=== PATIENT | female | born 1940 | race Caucasian/White ===

== ENCOUNTER 2021-12-20 10:37 | Day surgery (SDC) | payer MEDICARE, BC ==
[2021-12-20] VITALS (10 sets, daily range): BP systolic 151–175; BP diastolic 82–93
[~2021-12-20] VITALS: Ht 170.2 cm; Wt 63.1 kg
[~2021-12-20 10:37] MED LIST: ASPI81TA52 PO; ATOR20TA66 PO; ESCI20TA39 PO; METF-436 PO; MIRT45TA83 PO; PRAZ2CAP2 PO; ceFAZolin inj. 2,000 MG in dextrose 5%-water 100 ML IV ONE; famotidine 20mg tablet PO ONE; ringers solution, lacted 1,000 ML IV SCH
[2021-12-20] MEDS ORDERED: bacitracin 15gm ointment TP ONE ×2 (13:04→15:19)
[2021-12-20] MEDS ORDERED: BUPIVAcaine/PF 2.5 mg/ml (0.25%) 30ml vial ONE (13:04)
[2021-12-20] MEDS ORDERED: sevoflurane 250ml liquid IH ONE (13:35)
[2021-12-20] MEDS ORDERED: propofol 10mg/ml 20ml vial IV ONE (13:35)
[2021-12-20] MEDS ORDERED: ondansetron/PF 4mg/2ml inj ONE (13:35)
[2021-12-20] MEDS ORDERED: LIDOcaine 1% (10mg/ml)w/preservative inj. 20ml MDV ONE (13:35)
[2021-12-20] MEDS ORDERED: dexamethasone sod phosphate 10mg/ml inj ONE (13:35)
[2021-12-20] MEDS ORDERED: fentaNYL/PF 50MCG/1 ML 2ML syringe ONE (13:40)
[2021-12-20] MEDS ORDERED: midazolam 1 mg/ML 2ml injection ONE (13:44)
[2021-12-20] MEDS ORDERED: ringers solution, lacted 1,000 ML IV SCH (14:00)
[2021-12-20] MEDS ORDERED: HYDROmorphone/PF 0.2 MG/ML SYRINGE IV PRN ×2 (14:00)
[2021-12-20] MEDS ORDERED: ondansetron/PF 4mg/2ml inj IV PRN (14:00)
[2021-12-20] MEDS ORDERED: morphine 2 MG/ML inj. syringe IV PRN (14:00)
[2021-12-20] MEDS ORDERED: BUPIVAcaine/PF 2.5 mg/ml (0.25%) 30ml vial IJ ONE (14:22)
--- NOTE | 2021-12-20 16:02 | NUR ---
Received from OR via [facility] , accompanied by Anesthesiologist DR SYED and report given by Anesthesiolgist. PT PRESNTS WITH PIV 20G LEFT WRIST, RIGHT LFOOT DRESSING CLEAN DRY AND INTACT WITH BOOT. VSS. Addendum: 12/20/21 at 1636 by Chasidy Lake RN, RN Amended: Links added.
[2021-12-20] MEDS ORDERED: labetalol 20mg/4ml (5mg/ml) syringe IV PRN (16:40)
[2021-12-20] MEDS ORDERED: labetalol 20mg/4ml (5mg/ml) syringe IV ONE (16:45)
--- NOTE | 2021-12-20 17:12 | NUR ---
PT HAS MET ALL DC CRITERIA. IV DC'D WIT ALEKSEY INTACT. DC INSTRUCTIONS REVIEWED WITH PT, PT VERBALIZED UNDERSTANDING WITH NO FURTHER QUESTIONS AT THIS TIME. PT PROVIDED WITH BLUE FOAM LEG ELEVATOR. PT TAKEN OUT TO PRIVATE VEHICLE IN WHEELCHAIR WHERE FAMILY MEMBER TOOK PT HOME. Addendum: 12/20/21 at 1730 by Chasidy Lake RN, RN Amended: Links added.
== END 2021-12-20 17:12 | disposition home or self-care (01) ==
LOC: PAS 10:37
PROVIDERS: ATTEND Podiatrist Foot & Ankle Surgery
DX: M20.11 Hallux valgus (acquired), right foot (principal); M20.41 Other hammer toe(s) (acquired), right foot; M62.471 Contracture of muscle, right ankle and foot; F41.8 Other specified anxiety disorders; Z90.11 Acquired absence of right breast and nipple; E11.22 Type 2 diabetes mellitus with diabetic chronic kidney disease; N18.9 Chronic kidney disease, unspecified; N18.2 Chronic kidney disease, stage 2 (mild); I12.9 Hypertensive chronic kidney disease with stage 1 through stage 4 chronic kidney disease, or unspecified chronic kidney disease; K21.9 Gastro-esophageal reflux disease without esophagitis; Z79.84 Long term (current) use of oral hypoglycemic drugs; Z79.899 Other long term (current) drug therapy; Z90.710 Acquired absence of both cervix and uterus; Z98.890 Other specified postprocedural states
CPT/HCPCS: 28270; 28285; 28297; 28310; 73620; 82948; 87811; A6222; C1713; J0690; J1100; J2250; J2405; J2704; J3010; J3490; J7030; J7060; J7120; Z7506; Z7508; Z7512; 76000; A4215; A4618; A6253; A6446; A6449; A6455; A7000